=== PATIENT | female | born 1990 | race Caucasian/White ===

== ENCOUNTER 2018-04-11 05:00 | Day surgery (SDC) | payer OTHER ==
[~2018-04-11 05:00] MED LIST: LEVSIN0.125 MG PO; PEPCID20 MG PO; TORADOL60 MG IM; ZANTAC150 MG PO; [UNRECOGNIZED DRUG - OTHER]
== END 2018-04-11 12:00 | disposition home or self-care (01) ==
LOC: CIR.AMB 05:00
DX: K80.00 Calculus of gallbladder with acute cholecystitis without obstruction (principal)